=== PATIENT | female | born 1970 | race African-American/Black ===

== ENCOUNTER 2019-07-23 09:37 | Emergency (ER) | payer BC ==
[~2019-07-23] VITALS: Ht 175.3 cm; Wt 53.5 kg
--- OUTSIDE RECORDS SUMMARY | 2019-07-23 09:40 | XMS REPORT ---
[facility] Address Unknown Phone Unavailable Care Team Providers Care Telemarketing Fundraiser Name Role Phone Phyllis DAVALOS Unavailable Unavailable Payers Payer Name Policy Type Policy Number Effective Date Expiration Date Problems This patient has no known problems. Allergies, Adverse Reactions, Alerts Allergy Name Allergy Type Status Severity Reaction(s) Onset Date Inactive Date Treating Clinician Comments No Known Allergies DA Active U 2019-02-24 00:00:00 No Known Allergies DA Active U 2018-12-12 00:00:00 Medications This patient has no known medications. Results Test Description Test Time Test Comments Text Results Atomic Results Result Comments RAPID INFLUENZA A&B SCREEN 2019-07-09 08:16:00 RAPID INFLUENZA A AG (BEAKER) (test iqgh=8395) Negative Negative, Inconclusive RAPID INFLUENZA B AG (BEAKER) (test mgkq=3560) Negative Negative, Inconclusive RAPID STREP A [id number] 08:08:00* Test Item Value Reference Range Comments STREP A ANTIGEN (BEAKER) (test drcx=038) Negative CHEMISTRY 8 [id number] 09:56:00* Test Item Value Reference Range Comments SODIUM POC (test code=NAP) MMOL/L 135-146 POTASSIUM POC (test code=KP) MMOL/L 3.5-4.9 IONIZED CALCIUM POC (test code=CAIP) mmol/L 1.12-1.32 GLUCOSE POC (test code=GLUP) mg/dL 70-105 BUN POC (test code=BUNP) MG/DL 8-26 CREATININE POC (test code=CREATP) mg/dL 0.6-1.3 GLOMERULAR FILTRATION RATE POC (test code=GFRP) 72 58-135 CHEMISTRY 8 [id number] 09:56:00* Test Item Value Reference Range Comments SODIUM POC (test code=NAP) 142 MMOL/L 135-146 POTASSIUM POC (test code=KP) 4.0 MMOL/L 3.5-4.9 CHLORIDE POC (test code=CLP) 103 MMOL/L 98-109 CO2 POC (test code=CO2P) 26 mmol/L 24-29 IONIZED CALCIUM POC (test code=CAIP) 1.20 mmol/L 1.12-1.32 GLUCOSE POC (test code=GLUP) 95 mg/dL 70-105 BUN POC (test code=BUNP) 8 MG/DL 8-26 CREATININE POC (test code=CREATP) 1.0 mg/dL 0.6-1.3 GLOMERULAR FILTRATION RATE POC (test code=GFRP) 72 58-135
[2019-07-23] MEDS ORDERED: CEFDINIR300 MG PO (10:04)
[2019-07-23] MEDS ORDERED: PREDNISONE20 MG PO (10:16)
--- NOTE | 2019-07-23 10:26 | NUR ---
pt discharged home, talking in full sentences. pt stated she was seen at the clinic on July 08 for same complaint. pt stated her job wants her tested for covid 19 virus. pt instructed to go online and fill out questionaire and then see if she can get appointment to be tested. pt verbalized understanding.
== END 2019-07-23 10:30 | disposition home or self-care (01) ==
LOC: FSED 09:37
DX: R05 Cough (principal); J20.9 Acute bronchitis, unspecified; J02.9 Acute pharyngitis, unspecified
CPT/HCPCS: 83518; 87400; 99282